=== PATIENT | female | born 1950 | race Caucasian/White ===

== ENCOUNTER → 2019-03-09 | Outpatient (CLI) | payer OTHER | LOC: ULTRA 10:30 | DX: E04.1 Nontoxic single thyroid nodule (principal); E89.2 Postprocedural hypoparathyroidism; E07.9 Disorder of thyroid, unspecified ==

== ENCOUNTER → 2021-06-19 | Outpatient (CLI) | payer OTHER | LOC: RAD 09:31 | PROVIDERS: ATTEND Nurse Practitioner | DX: J98.11 Atelectasis (principal); M41.84 Other forms of scoliosis, thoracic region; M47.814 Spondylosis without myelopathy or radiculopathy, thoracic region; I70.0 Atherosclerosis of aorta; R09.89 Other specified symptoms and signs involving the circulatory and respiratory systems ==